=== PATIENT | male | born 1965 | race Asian ===

== ENCOUNTER 2024-04-19 14:48 | Outpatient (CLI) | payer OTHER, SELFPAY | END 2024-04-19 14:49 | disposition home or self-care (01) | PROVIDERS: PCP Family Medicine; Visit Provider Family Medicine | DX: Z00.00 Encounter for general adult medical examination without abnormal findings (principal); L30.8 Other specified dermatitis; L28.1 Prurigo nodularis; Z12.5 Encounter for screening for malignant neoplasm of prostate; Z13.6 Encounter for screening for cardiovascular disorders | CPT/HCPCS: 80053; 80061; G0103 ==

== ENCOUNTER 2024-05-07 10:38 | Outpatient (CLI) | payer OTHER, SELFPAY ==
--- NOTE | 2024-05-07 11:40 | W.ANESCHARGE ---
Anesthesia Charges Start Date/Time Anesthesia Start Date: 05/07/24 Anesthesia Start Time: 11:16 Stop Date/Time Anesthesia Stop Date: 05/07/24 Anesthesia Stop Time: 11:40
--- NOTE | 2024-05-07 12:00 | W.ANESCHARGE ---
Anesthesia Charges Start Date/Time Anesthesia Start Date: 05/07/24 Anesthesia Start Time: 11:16 Stop Date/Time Anesthesia Stop Date: 05/07/24 Anesthesia Stop Time: 11:40
== END 2024-05-07 10:39 | disposition home or self-care (01) ==
LOC: OP CLINIC 10:41
PROVIDERS: PCP Family Medicine; Visit Provider Internal Medicine
DX: Z12.11 Encounter for screening for malignant neoplasm of colon (principal)
CPT/HCPCS: 00811; 00812; 45378; J2704